=== PATIENT | female | born 1995 | race Caucasian/White ===

== ENCOUNTER 2016-07-22 15:55 | Outpatient (CLI) | payer OTHER ==
[2016-07-22 16:32] LABS: Basophils % (Auto) 0.5 % (0.0-1.8); Eosinophils % (Auto) 2.5 % (0.0-4.3); Hematocrit 37.9 % (30.3-42.9); Hemoglobin 12.5 gm/dl (10.1-14.3); Mean Corpuscular HGB Conc 33 % (30-34); Mean Corpuscular Hemoglobin 27 pg (28-32); Mean Corpuscular Volume 82 fl (79-97); Platelet Count 245 K/mm3 (140-440); Red Blood Count 4.64 M/mm3 (3.65-5.03); Red Cell Distribution Width 15.6 % (13.2-15.2)
[2016-07-22 17:37] LABS: Erythrocyte Sedimentation Rate 57 mm/Hr (0-20)
== END 2016-07-22 15:56 | disposition home or self-care (01) ==
LOC: LAB 15:55
PROVIDERS: ATTEND Chiropractor
DX: J03.90 Acute tonsillitis, unspecified (principal)
CPT/HCPCS: 36415; 85025; 85652; 86695; 86696; 87529